=== PATIENT | female | born 1980 | race Caucasian/White ===

== ENCOUNTER 2017-08-04 12:27 | Emergency (ER) | payer MEDICAID, OTHER ==
[~2017-08-04] VITALS: Ht 152.4 cm; Wt 59.0 kg
[~2017-08-04 12:27] MED LIST: ALBU0.63 NEB; IBUPROFEN PO
--- NOTE | 2017-08-04 12:47 | NUR ---
Received ALOX4 with pt c/o anal pain, possible hemorrhoids.
[2017-08-04] MEDS ORDERED: LIDOCAINE HCL 1% 20 ML VIAL IJ ONE (13:30)
[2017-08-04] MEDS ORDERED: HYDROCODONE/APAP 5-325MG TABLET PO ONE (13:30)
--- NOTE | 2017-08-04 13:36 | NUR ---
[facility] ER MD to bedside for rectal exam, medication given tolerated well no adverse reaction at this time.
[2017-08-04] MEDS ORDERED: HYDROCODONE/APAP 5-325MG TABLET ONE (13:50)
--- NOTE | 2017-08-04 14:19 | NUR ---
Home with [facility] and review rx with pt as well pt states that she understands. At bedside with ER MD for hemorroid nataly, tolerated well.
== END 2017-08-04 14:54 | disposition home or self-care (01) ==
LOC: ER 12:31
DX: K64.5 Perianal venous thrombosis (principal); J45.909 Unspecified asthma, uncomplicated; Z90.49 Acquired absence of other specified parts of digestive tract
CPT/HCPCS: 46083; 99284; A4663; J3490

== ENCOUNTER 2018-01-03 11:20 | Emergency (ER) | payer SELFPAY ==
[~2018-01-03] VITALS: Ht 152.4 cm; Wt 61.2 kg
--- NOTE | 2018-01-03 12:34 | NUR ---
MSE COMPLETED, PT D/C'D HOME, WORK NOTE GIVEN, PT AMBULATED W/O DIFF/TOOK ALL BELONGINGS.
[2018-01-03 12:36] VITALS: BP 110/74
== END 2018-01-03 12:25 | disposition home or self-care (01) ==
LOC: ER 11:20
DX: S60.221A Contusion of right hand, initial encounter (principal); J45.909 Unspecified asthma, uncomplicated; Z90.49 Acquired absence of other specified parts of digestive tract; Z79.1 Long term (current) use of non-steroidal anti-inflammatories (NSAID); Z79.899 Other long term (current) drug therapy; W20.8XXA Other cause of strike by thrown, projected or falling object, initial encounter; Y93.89 Activity, other specified; Y92.89 Other specified places as the place of occurrence of the external cause; Y99.8 Other external cause status
CPT/HCPCS: 73130; A4663

== ENCOUNTER 2018-03-28 11:25 | Emergency (ER) | payer SELFPAY ==
[~2018-03-28] VITALS: Ht 152.4 cm; Wt 63.5 kg
--- NOTE | 2018-03-28 11:37 | NUR ---
Patient discharged to home in stable conditon. Written and verbal after care instructions given to patient. Patient verbalizes understanding of instructions.
--- NOTE | 2018-03-28 11:39 | NUR ---
Patient left ER with steady gait.
== END 2018-03-28 11:39 | disposition home or self-care (01) ==
LOC: ER 11:28
DX: M54.32 Sciatica, left side (principal); J45.909 Unspecified asthma, uncomplicated; Z90.49 Acquired absence of other specified parts of digestive tract; Z79.1 Long term (current) use of non-steroidal anti-inflammatories (NSAID); Z79.899 Other long term (current) drug therapy
CPT/HCPCS: 99283; A4663

== ENCOUNTER 2018-05-10 15:27 | Emergency (ER) | payer OTHER ==
[~2018-05-10] VITALS: Ht 154.9 cm; Wt 63.5 kg
[2018-05-10 15:56] VITALS: BP 111/75
--- NOTE | 2018-05-10 15:56 | NUR ---
Patient discharged to home in stable conditon. Written and verbal after care instructions given. Patient verbalizes understanding of instructions.
== END 2018-05-10 15:56 | disposition home or self-care (01) ==
LOC: ER 15:29
DX: M25.512 Pain in left shoulder (principal); J45.909 Unspecified asthma, uncomplicated; Z90.49 Acquired absence of other specified parts of digestive tract
CPT/HCPCS: 99283; A4663

== ENCOUNTER 2018-06-28 15:16 | Emergency (ER) | payer OTHER ==
[~2018-06-28] VITALS: Ht 152.4 cm; Wt 63.5 kg
--- NOTE | 2018-06-28 16:00 | NUR ---
DR REED MADE PATIENT AWARE OF TEST RESULT WILL BE DC HOME.
--- NOTE | 2018-06-28 16:14 | NUR ---
Patient discharged to home in stable conditon. Written and verbal after care instructions given. Patient verbalizes understanding of instructions.
[2018-06-28 16:15] VITALS: BP 136/84
== END 2018-06-28 16:17 | disposition home or self-care (01) ==
LOC: ER 15:16
DX: M25.512 Pain in left shoulder (principal); J45.909 Unspecified asthma, uncomplicated; Z90.49 Acquired absence of other specified parts of digestive tract
CPT/HCPCS: 71045; 73030; 99284; A4663

== ENCOUNTER 2020-04-21 09:45 | Emergency (ER) | payer OTHER ==
[~2020-04-21] VITALS: Ht 154.9 cm; Wt 72.6 kg
[2020-04-21 11:11] VITALS: BP 111/61
--- NOTE | 2020-04-21 11:11 | NUR ---
Patient discharged to home in stable condition. Written and verbal after care instructions given. Patient verbalizes understanding of instructions. Stressed follow up or return to ER for worsening s/s.pt walks in steady gait.
== END 2020-04-21 11:13 | disposition home or self-care (01) ==
LOC: ER 09:45
DX: R51 Headache (principal); S16.1XXA Strain of muscle, fascia and tendon at neck level, initial encounter; X58.XXXA Exposure to other specified factors, initial encounter; Y92.89 Other specified places as the place of occurrence of the external cause; Q76.5 Cervical rib; J45.909 Unspecified asthma, uncomplicated
CPT/HCPCS: 70450; 72125; A4663

== ENCOUNTER 2020-09-09 11:31 | Emergency (ER) | payer MEDICAID, OTHER ==
[~2020-09-09] VITALS: Ht 152.4 cm; Wt 70.3 kg
[2020-09-09] MEDS ORDERED: methylPREDNISolone SOD SUCC 125 MG/2 ML VIAL IV ONE (11:45)
[2020-09-09] MEDS ORDERED: ALBUTEROL SULFATE 2.5 MG/3 ML NEBU NEB ONE ×2 (11:45→13:15)
[2020-09-09] MEDS ORDERED: methylPREDNISolone SOD SUCC 125 MG/2 ML VIAL ONE (12:07)
--- NOTE | 2020-09-09 12:20 | NUR ---
Pt resting with HHN TX in progress, no acute distress noted.
[2020-09-09 12:25] LABS: BASOPHILS % (AUTO) 0.5 % (0.0-2.0); EOSINOPHILS # (AUTO) 0.1 K/uL (0.0-0.7); EOSINOPHILS % (AUTO) 0.7 % (0.0-7.0); HEMOGLOBIN 13.5 g/dL (10.9-14.3); LYMPHOCYTES # (AUTO) 3.1 K/uL (20.0-40.0); LYMPHOCYTES % (AUTO) 34.3 % (20.5-51.5); MEAN CORPUSCULAR HEMOGLOBIN 29.9 uug (24.7-32.8); MEAN CORPUSCULAR HGB CONC 33 g/dL (32.3-35.6); MEAN CORPUSCULAR VOLUME 90.5 fL (75.5-95.3); MONOCYTES # (AUTO) 0.7 K/uL (2.0-10.0); MONOCYTES % (AUTO) 7.8 % (0.0-11.0); NEUTROPHILS # (AUTO) 5.1 K/uL (1.8-8.9); NEUTROPHILS % (AUTO) 56.7 % (38.5-71.5); PLATELET COUNT (AUTO) 327 K/uL (179-408); RED BLOOD CELL COUNT(AUTO) 4.53 MIL/uL (3.63-4.92); WHITE BLOOD COUNT (AUTO) 9.1 K/uL (3.8-11.8)
[2020-09-09 12:34] LABS: CREATININE 0.7 mg/dL (0.6-1.3)
--- NOTE | 2020-09-09 13:10 | NUR ---
HHN TX #2 STARTED BY [facility]. NO ACUTE DISTRESS NOTED.
[2020-09-09] MEDS ORDERED: IPRATROPIUM BROMIDE 0.5 MG/2.5 ML NEBU ONE (13:14)
[2020-09-09] MEDS ORDERED: ALBUTEROL SULFATE 2.5 MG/ 0.5 ML NEBU ONE (13:14)
[2020-09-09] MEDS ORDERED: IPRATROPIUM BROMIDE 0.5 MG/2.5 ML NEBU NEB ONE (13:15)
--- NOTE | 2020-09-09 14:26 | NUR ---
Patient discharged to home in stable condition with family. Written and verbal after care instructions given. Patient verbalizes understanding of instructions. Stressed follow up or return to ER for worsening s/s.
--- NOTE | 2020-09-09 14:26 | NUR ---
IV removed. Catheter intact and site benign. Pressure and 4x4 gauze applied to site. No bleeding noted.
[2020-09-09 14:27] VITALS: BP 114/67
== END 2020-09-09 14:28 | disposition home or self-care (01) ==
LOC: ER 11:31 → MERGE 11:31 → ER 14:28
DX: J45.901 Unspecified asthma with (acute) exacerbation (principal); R06.00 Dyspnea, unspecified; Z20.828 Contact with and (suspected) exposure to other viral communicable diseases
CPT/HCPCS: 36415; 71045; 80048; 84484; 85025; 85379; 87426; 93005; 94640 ×2; 96374; 99285; J2930; 70030-TC; A4663; J3590